=== PATIENT | female | born 1970 | race Caucasian/White ===

== ENCOUNTER → 2016-05-09 | Outpatient (CLI) | payer OTHER ==
--- NOTE | 2016-05-09 10:54 | CR ---
EXAMINATION: Right wrist HISTORY: Pain COMPARISON: 04/04/2016 TECHNIQUE: 2 views FINDINGS/IMPRESSION: There is a healing nondisplaced distal radius fracture identified. Position and alignment appear grossly unchanged. The remaining osseous structures and joint spaces appear preser genna.
== END ==
LOC: MW.CHORTHO 07:40
PROVIDERS: ATTEND Physician Assistant
DX: M25.531 Pain in right wrist (principal); S52.501D Unspecified fracture of the lower end of right radius, subsequent encounter for closed fracture with routine healing
CPT/HCPCS: 73100-26-RT; 73100-RT